=== PATIENT | female | born 1995 | race Caucasian/White ===

== ENCOUNTER 2025-08-20 08:32 | Emergency (ER) | payer BC, SELFPAY ==
--- OUTSIDE RECORDS SUMMARY | 2025-08-20 08:46 | XMS_ITS | Encounter Summary ---
Author Organization [facility] Address [address] [place] [address] Phone Care Team Providers Care Blocking Machine Operator Name Role Phone Megan Driscoll DO Primary Care Provider [phone] Encounter Details Date Type Department Care Team (Late st Contact Info) Description 08/12/2025 Results Follow-Up [facility] - Family Medicine [facility] [address] [place] [address] Megan Driscoll, DO [address] [facility] [place] [address] CMP (COMPREHENSIVE METABOLIC PANEL), VITAMIN D, 25 HYDROXY TOTAL, VITAMIN B12, Additional followed-up results: 5 Social History Tobacco Use Types Packs/Day Years Used Date Smoking Tobacco: Never Smokeless Tobacco: Never Alcohol Use Standard Drinks/Week Comments Never 0 (1 standard drink = 0.6 oz pur e alcohol) PHQ-2 Answer Date Recorded Total Score - Questions 1-9 0 07/07 Social Connection and Isolation Panel Answer Date Recorded In a typical week, how many times do you talk on the phone with family, friends, or neighbors? Three times a week 07/26/20 How often do you get togethe r with friends or relatives? Once a week 07/26/2025 How often do you attend chur or restoration services? Never 07/26/2025 Do you belong to any clubs o r organizations such as spiritism groups, unions, fraternal or athletic groups, or school groups? No 07/26/2025 How often do you attend meet ings of the clubs or organizations you belong to? Never 07/26/2025 Are you , , di vorced, , never , or living with a partner? Living with partner 07/26/2025 AUDIT-C Answer Date Recorded Q1: How often do you have a drink containing alcohol? Never 07/26/2025 Q2: How many drinks containi ng alcohol do you have on a typical day when you are drinking? Patient does not drink Q3: How often do you have si x or more drinks on one occasion? Never 07/26/2025 Overall Financial Resource Strain (CARDIA) Answe r Date Recorded How hard is it for you to pa y for the very basics like food, housing, medical care, and heating? Hard 07/26/2025 [facility] - Occupational Stress Questionnaire Answer Date Recorded Do you feel stress - tense, restless, nervous, or anxious, or unable to sleep at night because your mind is troubled all the time - these days? Very much 07/26/2025 Exercise Vital Sign Answer Date Recorde d On average, how many days pe r week do you engage in moderate to strenuous exercise (like a brisk walk)? Patient declined On average, how many minutes do you engage in exercise at this level? Patient declined 07/26/2025 Hunger Vital Sign Answer Date Recorded Within the past 12 months, y ou worried that your food would run out before you got the money to buy more. Sometimes true Within the past 12 months, t he food you bought just didn't last and you didn't have money to get more. Never true PRAPARE - Transportation Answer Date Re corded In the past 12 months, has l ack of transportation kept you from medical appointments or from getting medications? No 07/07 In the past 12 months, has l ack of transportation kept you from meetings, work, or from getting things needed for daily living? No 07/26/2025 Housing Stability Vital Sign Answer Josr e Recorded In the last 12 months, was t here a time when you were not able to pay the mortgage or rent on time? Yes 07/26/2025 In the past 12 months, how m any times have you moved where you were living? 1 07/26/2025 At any time in the past 12 m [facility], were you homeless or living in a [facility] (including now)? No 07/26/2025 [facility] Utilities Answer Date Recorded In the past 12 months has th e electric, gas, oil, or water company threatened to shut off services in your home? 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 Author Help patients manage type 2 diabetes Care Plan [facility] TYPE 2 DIABETES CONCERN No Megan Driscoll DO Help patient manage blood glucose Care Plan [facility] [place] TYPE 2 DIABETES METFORMIN PATTERN CONCERN No Megan Driscoll DO documented as of this encounter Visit Diagnoses Not on filedocumented in this encounter Additional Health Concerns Active Problems Noted Date Diagnosed Date [facility] TYPE 2 DIABETES CONCERN 02/27/2025 [facility] TYPE 2 DIABETES METFORMIN PATTERN CONCERN 0 02/27/2025 Assessment Noted Time PHQ-9 Depression Total Score: 0 07/27/20 1:06 PM CDT documented as of this encounter Care Teams Blocking Machine Operator Relationship Specialty Start Date End Date Megan Driscoll DO [address] [facility] [address] [address] PCP - General Family Medicine 02/27/25 documented as of this encounter
--- OUTSIDE RECORDS SUMMARY | 2025-08-20 08:46 | XMS_ITS | Clinical Summary ---
Author Organization [facility] Address [address] [place] [address] Phone Care Team Providers Care Freight Elevator Operator Name Role Phone Megan Driscoll DO Primary Care Provider [phone] Allergies Active Allergy Reactions Criticality Noted Date Comments Amoxicillin Hives,Rash,Itching High 02/25/2025 Penicillins Hives,Rash,Itching High 02/25/2025 Medications Desogestrel-Et hinyl Estradiol (APRI PO) Take by mouth. 0.15-.03 mg/mg Active ARIPiprazole (ABILIFY) 5 MG Tablet Take 1 Tablet by mouth daily. 90 Tablet 3 5 Active Tirzepatide (Mounjaro) 2.5 MG/0.5ML Solution Auto-injectorI ndications:Typ e 2 diabetes mellitus without complication, without long-term current use of insulin 2.5 mg by Subcutaneous route once a week. 2 mL 1 5 Active OXcarbazepine (Trileptal) 150 MG Tablet Take 150 mg by mouth 2 times daily. 025 Discontin ued(Error ) ARIPiprazole (Abilify) 15 MG Tablet Take 15 mg by mouth daily. 025 Discontin ued(Error ) venlafaxine (Effexor XR) 75 MG CAPSULE SR 24 HR Take 1 Capsule by mouth 3 times daily. 90 Capsule 3 5 025 Discontin ued(Error ) simvastatin (ZOCOR) 10 MG Tablet Take 1 Tablet by mouth every evening. 30 Tablet 5 5 025 Discontin ued(Error ) semaglutide, 2 MG/DOSE, (OZEMPIC) 8 MG/3ML Solution Pen-injector 2 mg by Subcutaneous route once a week. 3 mL 5 025 Discontin ued(Error ) tirzepatide-we ight management (Zepbound) 2.5 MG/0.5ML Solution Auto-injector 2.5 mg by Subcutaneous route once a week. 1 mL 3 5 025 Discontin ued(Alter diane therapy) Active Problems No known active problems Encounters Date Type Department Care Team Description 08/12/2025 Results Follow-Up [facility] [address] [place] [address] Megan Driscoll DO CMP (COMPREHENSIVE METABOLIC PANEL), VITAMIN D, 25 HYDROXY TOTAL, VITAMIN B12, Additional followed-up results: 5 07/30/2025 Telephone [facility] [address] [place] [address] Megan Driscoll DO Prior Authorization 07/27/2025 1:50 PM CDT Lab [facility] [facility] [address] [place] [address] [facility]/Ancillary Type 2 diabetes mellitus without complication, without long-term current use of insulin; Hyperlipidemia, unspecified hyperlipidemia type; Morbid obesity (HCC); Bipolar 2 disorder (HCC); Other migraine without status migrainosus, not intractable; RLS (restless legs syndrome) Discharge Disposition: Discharged to home or Selfcare 07/27/2025 1:20 PM CDT Office Visit [facility] [address] [place] [address] Megan Driscoll DO Type 2 diabetes mellitus without complication, without long-term current use of insulin (Primary Dx); Hyperlipidemia, unspecified hyperlipidemia type; Morbid obesity (HCC); Bipolar 2 disorder (HCC); Other migraine without status migrainosus, not intractable; RLS (restless legs syndrome) Discharge Disposition: Discharged to home or Selfcare 07/26/2025 Travel from Last 3 Months Immunizations Immunization Administration Dates Next Due [id number] B 02/16/2022 Human Papillomavirus (HPV) 9 -valent Vaccine 08/27/2023 Human Papillomavirus Vaccine (HPV), quadrivalent 07/14/2009,06/25/2009 Influenza Vaccine, Quadrivalent, PF 09/10/2018,1 Influenza Vaccine,unspecifie d Formulation 08/17/2016,09/01/2015 MMR Vaccine 11/09/2022 Meningococcal Vaccine 03/23/2008 TDAP Vaccine 09/04/2015,08/12/2015 Tuberculin Skin Test; Purifi ed Protein Derivative Solutiol 04/23/2018,03/27/2017,2016,06/01,05/18/2015 Varicella Vaccine Live 03/23/2008 Family History Medical History Relation Name Comments Diabetes Father No Known Problems Half-Sister 1 No Known Problems Half-Sister 2 No Known Problems Half-Sister 3 Diabetes Mother Relation Name Status Comments Brother Alive Father Alive Half-Sister 1 Alive Half-Sister 2 Alive Half-Sister 3 Alive Mother Alive Social History Tobacco Use Types Packs/Day Years Used Date Smoking Tobacco: Never Smokeless Tobacco: Never Tobacco Cessation:Counseling Given: Not Answered Alcohol Use Standard Drinks/Week Comments Never 0 [...] 07/26/2025 How often do you attend chur ch or baptism services? Never 07/26/2025 Do you belong to any clubs o r organizations such as scientologist groups, unions, fraternal or athletic groups, or [...] housing, medical care, and heating? Hard 07/26/2025 [facility] - Occupational Stress Questionnaire Answer Date Recorded [...] any time in the past 12 m onths, were you homeless or living in a residential (including now)? No 07/26/2025 [facility] Utilities Answer Date Recorded [...] Not on file Not on f ile Last Filed Vital Signs Vital Sign Reading Time Taken Comments Blood Pressure 102/70 07/27/2025 1:06 PM CDT Pulse 105 07/27/2025 1:06 PM CDT Temperature 36.3 C (97.4 F) 07/27/2025 1:06 PM CDT Respiratory Rate 16 07/27/2025 1:06 PM CDT Oxygen Saturation 98% 07/27/2025 1:06 PM CDT Inhaled Oxygen Concentration - - Weight 147 kg (324 lb) 07/27/2025 1:06 PM CDT Height 165.1 cm (5' 5) 07/27/2025 1:06 PM CDT Body Mass Index 53.92 07/27/2025 1:06 PM CDT Plan of Treatment Health Maintenance Due Date Last Done Comments Pap Smear 06/20/2027 06/20/2024 Cervical Cancer Screening (CCS) 06/18/2029 HPV/Cotest 06/18/2029 06/18/2024 Respiratory Syncytial Virus (RSV) Immunization (Adult) (1 - 1-dose 75+ series) 2069 Meningococcal Immunization (ACWY) Aged Out 03/23/2008 No longer eligible based on patient's age to complete this topic Td Immunization Every 10 Years (Adults With 1 Tdap) Discontinued 09/04/2015, 08/12/2015 TdaP Immunization Discontinued 09/04/2015, 08/12/2015 Influenza Immunization Discontinued 8, 08/31/2017, 08/17/2016, Additional history exists SARS-COV-2 Immunization Discontinued 04/09/2021, 03/11 Hepatitis B Immunization Discontinued 02/16/2022 Hepatitis C Virus (HCV) Screening Completed 08/27/2023 Human Papillomavirus (HPV) Immunization Discontinued 08/27/2023, 07/14/2009, 06/25/2009 Pneumococcal Immunization Combined Discontinued Rotavirus Immunization Aged Out No lo nger eligible based on patient's age to complete this topic Goals Goal Patient Goal Type Associated Problems Recent Progress Patient-Stated? Author Help patients manage type 2 diabetes Care Plan MCCP TYPE 2 DIABETES CONCERN No Megan Driscoll DO Help patient manage blood glucose Care Plan MCCP TYPE 2 DIABETES METFORMIN PATTERN CONCERN No Megan Driscoll DO Procedures Procedure Name Priority Date/Time Associated Diagnosis Comments CBC WITH AUTO DIFFERENTIAL Routine 07/27/2025 1:58 PM CDT Type 2 diabetes mellitus without complication, without long-term current use of insulin Hyperlipidemia, unspecified hyperlipidemia type Morbid obesity (HCC) Bipolar 2 disorder (HCC) Other migraine without status migrainosus, not intractable MAGNESIUM (MG) Routine 07/27/2025 1:58 PM CDT RLS (restless legs syndrome) IRON,TRANSFERN,CALC. TIBC,%SAT Routine 07/27/2025 1:58 PM CDT RLS (restless legs syndrome) HEMOGLOBIN A1C W/ ESTIMATED GLUCOSE Routine 07/27/2025 1:58 PM CDT Type 2 diabetes mellitus without complication, without long-term current use of insulin Hyperlipidemia, unspecified hyperlipidemia type Morbid obesity (HCC) Bipolar 2 disorder (HCC) Other migraine without status migrainosus, not intractable LIPID PANEL Routine 07/27/2025 1:58 PM CDT Type 2 diabetes mellitus without complication, without long-term current use of insulin Hyperlipidemia, unspecified hyperlipidemia type Morbid obesity (HCC) Bipolar 2 disorder (HCC) Other migraine without status migrainosus, not intractable VITAMIN B12 Routine 07/27/2025 1:58 PM CDT Type 2 diabetes mellitus without complication, without long-term current use of insulin Hyperlipidemia, unspecified hyperlipidemia type Morbid obesity (HCC) Bipolar 2 disorder (HCC) Other migraine without status migrainosus, not intractable VITAMIN D, 25 HYDROXY TOTAL Routine 07/27/2025 1:58 PM CDT Type 2 diabetes mellitus without complication, without long-term current use of insulin Hyperlipidemia, unspecified hyperlipidemia type Morbid obesity (HCC) Bipolar 2 disorder (HCC) Other migraine without status migrainosus, not intractable CMP (COMPREHENSIVE METABOLIC PANEL) Routine 07/27/2025 1:58 PM CDT Type 2 diabetes mellitus without complication, without long-term current use of insulin Hyperlipidemia, unspecified hyperlipidemia type Morbid obesity (HCC) Bipolar 2 disorder (HCC) Other migraine without status migrainosus, not intractable COMPLETE BLOOD COUNT (CBC) WITH DIFF Routine 07/27/2025 1:58 PM CDT Type 2 diabetes mellitus without complication, without long-term current use of insulin Hyperlipidemia, unspecified hyperlipidemia type Morbid obesity (HCC) Bipolar 2 disorder (HCC) Other migraine without status migrainosus, not intractable PATHOLOGY CYTOLOGY DIRECTOR OF VENDOR MANAGEMENT 06/20/2024 12:00 AM CDT from Last 3 Months or Most Recently Relevant to Health Maintenance Results * VITAMIN D, 25 HYDROXY TOTAL (07/27/2025 1:58 PM CDT) VITAMIN D, 25 HYDROX 26.0 ng/mL 07/27/2025 4:59 PM CDT [facility] Blood Venipuncture / Unknown 07/27/2025 1:58 PM CDT 07/27/2025 1:58 PM CDT Narrative [facility] - 07/27/2025 4:59 PM CDT Published reference ranges for Vitamin D vary depending on time and place and method of testing, and on patient's age, sex, ethnicity and levels of other measured analytes such as parathormone, calcium and phosphorus. The result should be evaluated in conjunction with clinical findings and suspicions. [place] [employer] and [employer]ocrine Clinical Practice Guidelines: Status Vitamin D levels (ng/mL) Deficient <=20 At risk of inadequacy 21-29 Sufficient 30-100 Centers of Disease Control and Prevention Guidelines: Status Vitamin D levels (ng/mL) Deficient <13 At risk of inadequacy 13-19 Sufficient 20-50 Possibly harmful >50 References: [place] [employer], 2010 Dietary reference intakes for calcium and vitamin D. [place]: The National Academies Press. Clarence M, Jet N, Dolly SANCHEZ, et al., Evaluation, treatment, and prevention of Vitamin D deficiency: an Endocrinology Clinical Practice Guideline. JCEM 2011 96: 7 3289-8853. Prateek Lucia, Marquise Stephenson, Contreras D, et al., Vitamin D Status: [place], 8985-8988, [facility] data brief, no. 59, MD [place]ah[place]: [facility] for Health Statistics. 2011. us Megan L Americo DO CHEMISTRY ORDERABLES Final Re sult Performing Organization Address City/[facility]/ZIP Co de Phone Number [facility] [address] [place] [address] * (ABNORMAL) IRON,TRANSFERN,CALC.TIBC,%SAT (07/27/2025 1:58 PM CDT) Pathologist [facility] IRON 30 25 - 156 mcg/dL 07/27/2025 4:33 PM CDT [facility] TRANSFERRIN 278 180 - 382 mg/dL 07/27/2025 4:33 PM CDT [facility] TIBC, CALCULATED 348 265 - 497 mcg/dL 07/27/2025 4:33 PM CDT [facility] % SATURATION * 9(L) 15 - 62 % 07/27/2025 4:33 PM CDT [facility] Blood Venipuncture / Unknown 07/27/2025 1:58 PM CDT 07/27/2025 1:58 PM CDT us Megan L Americo DO CHEMISTRY ORDERABLES Final Re sult Performing Organization Address City/[facility]/ZIP Co de Phone Number [facility] [address] [place] [address] * (ABNORMAL) HEMOGLOBIN A1C W/ ESTIMATED GLUCOSE (07/27/2025 1:58 PM CDT) HGB-A1C 7.0(H) 4.0 - 6.0 % 07/27/2025 4:26 PM CDT [facility] Est Average Glucose 154.2 mg/dL 07/27/2025 4:26 PM CDT [facility] Blood Venipuncture / Unknown 07/27/2025 1:58 PM CDT 07/27/2025 1:58 PM CDT Narrative [facility] - 07/27/2025 4:26 PM CDT HEMOGLOBIN A1C: DIABETIC PATIENTS: WELL-CONTROLLED: 6.2 - 7.0 INTERMEDIATE WELL-CONTROLLED: 7.0 - 9.0 POORLY-CONTROLLED: >9.0 Specimens containing greater than 5% of Hemoglobin F may result in lower than expected % HbA1C results. us Megan Driscoll DO CHEMISTRY ORDERABLES Final Re sult [facility] [address] [place] [address] * (ABNORMAL) CBC WITH AUTO DIFFERENTIAL (07/27/2025 1:58 PM CDT) WBC 15.04(H) 4.00 - 12.00 10(3)/mcL 07/27/2025 5:41 PM CDT [facility] RBC 4.66 3.80 - 5.30 10(6)/mcL 07/27/2025 5:41 PM CDT [facility] HEMOGLOBIN (HGB) 12.1 12.0 - 15.8 g/dL 07/27/2025 5:41 PM CDT [facility] HEMATOCRIT (HCT) 38.9 36.0 - 47.0 % 07/27/2025 5:41 PM CDT [facility] MCV 83.5 82.0 - 96.0 fL 07/27/2025 5:41 PM CDT [facility] MCH 26.0 26.0 - 34.0 pg 07/27/2025 5:41 PM CDT [facility] MCHC 31.1 31.0 - 36.0 g/dL 07/27/2025 5:41 PM CDT [facility] PLATELET COUNT 401 140 - 440 10(3)/[facility] 07/27/2025 5:41 PM CDT [facility] RDW 13.4 11.8 - 15.5 % 07/27/2025 5:41 PM CDT [facility] MPV 11.9 9.7 - 12.4 fL 07/27/2025 5:41 PM CDT [facility] NEUTROPHILS 54.9 47.0 - 73.0 % 07/27/2025 5:41 PM CDT [facility] LYMPHOCYTES 34.8 18.0 - 42.0 % 07/27/2025 5:41 PM CDT [facility] MONOCYTES 6.6 4.0 - 12.0 % 07/27/2025 5:41 PM CDT [facility] EOSINOPHILS 2.7 0.0 - 5.0 % 07/27/2025 5:41 PM CDT [facility] BASOPHILS 0.5 0.0 - 1.0 % 07/27/2025 5:41 PM CDT [facility] IMMATURE GRANULOCYTE 0.5(H) 0.0 - 0.4 % 07/27/2025 5:41 PM CDT [facility] Comment:Immature Granulocyte s includes Metamyelocytes, Myelocytes, and Promyelocytes. ABSOLUTE NEUTROPHILS 8.24(H) 1.60 - 7.70 10(3)/[facility] 07/27/2025 5:41 PM CDT [facility] ABSOLUTE LYMPHOCYTES 5.24(H) 1.30 - 3.20 10(3)/[facility] 07/27/2025 5:41 PM CDT [facility] ABSOLUTE MONOCYTES 1.00 0.20 - 1.00 10(3)/[facility] 07/27/2025 5:41 PM CDT [facility] ABSOLUTE EOSINOPHIL 0.40 0.00 - 0.40 10(3)/[facility] 07/27/2025 5:41 PM CDT [facility] ABSOLUTE BASOPHILS 0.08 0.00 - 0.10 10(3)/mcL 07/27/2025 5:41 PM CDT [facility] ABSOLUTE IMMATURE GRANULOCYTE 0.08(H) 0.00 - 0.03 10 (3) mcL. 07/27/2025 5:41 PM CDT [facility] NRBC PER 100 WBC 0 07/27/20 5:41 PM CDT [facility] RESULTS ARE CONSISTENT WITH PERIPHERAL SMEAR REVIEW Yes 07/27/2025 5:41 PM CDT [facility] RBC MORPHOLOGY CONSISTENT WITH INDICES Yes 07/27/2025 5:41 PM CDT [facility] LARGE PLATELETS 1+ 5:41 PM CDT [facility] Blood Venipuncture / Unknown 07/27/2025 1:58 PM CDT 07/27/2025 1:58 PM CDT us Megan Driscoll DO HEMATOLOGY ORDERABLES Final R esult [facility] [address] [place] [address] * VITAMIN B12 (07/27/2025 1:58 PM CDT) Pathologist [facility] VITAMIN B12 323 213 - 816 pg/mL 07/27/2025 4:59 PM CDT [facility] Blood Venipuncture / Unknown 07/27/2025 1:58 PM CDT 07/27/2025 1:58 PM CDT us Megan L Americo DO CHEMISTRY ORDERABLES Final Re sult [facility] [address] [place] [address] * MAGNESIUM (MG) (07/27/2025 1:58 PM CDT) MAGNESIUM 1.7 1.6 - 2.6 mg/dL 07/27/2025 4:33 PM CDT [facility] Blood Venipuncture / Unknown 07/27/2025 1:58 PM CDT 07/27/2025 1:58 PM CDT us Megan L Americo DO CHEMISTRY ORDERABLES Final Re sult [facility] [address] [place] [address] * (ABNORMAL) LIPID PANEL (07/27/2025 1:58 PM CDT) CHOLESTEROL 210(H) <200 mg/dL 07/27/2025 4:33 PM CDT [facility] TRIGLYCERIDES 247(H) <150 mg/dL 07/27/2025 4:33 PM CDT [facility] HDL CHOLESTEROL 50 >40 mg/dL 4:33 PM CDT [facility] LDL 111 <130 mg/dL 07/27/2025 4:33 PM CDT [facility] VLDL 49 10 - 50 mg/dL 07/27/2025 4:33 PM CDT [facility] CHOL/HDL RATIO 4.2 0.0 - 4.4 07/27/2025 4:33 PM CDT [facility] NON-HDL CHOLESTEROL 160(H) <130 mg/dL 07/27/2025 4:33 PM CDT [facility] IS THE PATIENT REQUIRED TO BE FASTING? No 07/27/2025 4:33 PM CDT [facility] Blood Venipuncture / Unknown 07/27/2025 1:58 PM CDT 07/27/2025 1:58 PM CDT us Megan L Americo DO CHEMISTRY ORDERABLES Final Re sult [facility] [address] [place] [address] * (ABNORMAL) CMP (COMPREHENSIVE METABOLIC PANEL) (07/27/2025 1:58 PM CDT) SODIUM 142 136 - 145 mmol/L 07/27/2025 4:33 PM CDT [facility] POTASSIUM 3.9 3.5 - 5.1 mmol/L 07/27/2025 4:33 PM CDT [facility] CHLORIDE 105 98 - 107 mmol/L 07/27/2025 4:33 PM CDT [facility] CO2, VENOUS 25 22 - 30 mmol/L 07/27/2025 4:33 PM CDT [facility] ANION GAP 15.9 <18.0 mmol/L 07/27/2025 4:33 PM CDT [facility] GLUCOSE 155(H) 70 - 99 mg/dL 07/27/2025 4:33 PM CDT [facility] BUN 16 5 - 18 mg/dL 07/27/2025 4:33 PM CDT [facility] CREATININE, BLOOD 0.59(L) 0.60 - 1.00 mg/dL 07/27/2025 4:33 PM CDT [facility] BUN/CREATININE RATIO 27(H) 12 - 20 ratio 07/27/2025 4:33 PM CDT [facility] TOTAL PROTEIN 7.6 6.0 - 8.0 g/dL 07/27/2025 4:33 PM CDT [facility] ALBUMIN 4.4 3.5 - 5.0 g/dL 07/27/2025 4:33 PM CDT [facility] A/G RATIO 1.4 1.0 - 2.2 07/27/2025 4:33 PM CDT [facility] CALCIUM 9.5 8.7 - 10.5 mg/dL 07/27/2025 4:33 PM CDT [facility] T BILI 0.2 0.2 - 1.2 mg/dL 07/27/2025 4:33 PM CDT [facility] SGOT (AST) 23 <43 U/L 07/27/2025 4:33 PM CDT [facility] SGPT (ALT) 28 <56 U/L 07/27/2025 4:33 PM CDT [facility] ALKALINE PHOSPHATASE 90 40 - 150 U/L 07/27/2025 4:33 PM CDT [facility] IS THE PATIENT REQUIRED TO BE FASTING? No 07/27/2025 4:33 PM CDT [facility] GFR, ESTIMATED >60 >=60 07/27/2025 4:33 PM CDT [facility] Comment: Creatinine Clearance is the preferred criteria for selecting drug dose adjustments in renally impaired patients. The GFR is provided as additional pertinent clinical information. GFR is reported in mL/min/1.73 sq m. Calculation based on the 2020 Chronic Kidney Disease Epidemiology Collaboration (CKD-EPI) equation refit without adjustment for race. GFR, EST. >60 >=60 025 4:33 PM CDT [facility] Comment: Creatinine Clearance is the preferred criteria for selecting drug dose adjustments in renally impaired patients. The GFR is provided as additional pertinent clinical information. GFR is reported in mL/min/1.73 sq m. Calculation based on the 2009 Chronic Kidney Disease Epidemiology Collaboration (CKD-EPI). GFR, EST. NONAFRICAN >60 >=60 07/27/2025 4:33 PM CDT [facility] Comment: Creatinine Clearance is the preferred criteria for selecting drug dose adjustments in renally impaired patients. The GFR is provided as additional pertinent clinical information. GFR is reported in mL/min/1.73 sq m. Calculation based on the 2009 Chronic Kidney Disease Epidemiology Collaboration (CKD-EPI). Blood Venipuncture / Unknown 07/27/2025 1:58 PM CDT 07/27/2025 1:58 PM CDT us Megan Driscoll DO CHEMISTRY ORDERABLES Final Re sult [facility] [address] [place] [address] * PATHOLOGY CYTOLOGY DIRECTOR OF VENDOR MANAGEMENT (06/20/2024 12:00 AM CDT) 06/20/2024 us Provider Scan PATHOLOGY/CYTOLOGY ORDERABLES Fi nal Result SCAN from Last 3 Months or Most Recently Relevant to Health Maintenance Additional Health Concerns Active Problems Noted Date Diagnosed Date MCCP TYPE 2 DIABETES CONCERN 02/27/2025 MCCP TYPE 2 DIABETES METFORMIN PATTERN CONCERN 0 02/27/2025 Insurance [facility] Care Teams Freight Elevator Operator Relationship Specialty Start Date End Date Megan Driscoll DO [address] [place] [address] PCP - General Family Medicine 02/27/25
[2025-08-20 09:04] VITALS: BP 122/61; PULSE 84; RESP 18; TEMP 36.8; O2SAT 100
--- NOTE | 2025-08-20 09:16 | ED.GENADULT ---
HPI - General Adult General Chief complaint: Unspecified Stated complaint: Time Seen by Provider: 08/20/25 09:16 Source: patient Mode of arrival: ambulatory Limitations: no limitations History of Present Illness HPI narrative: 30-year-old female presents with confirmation of urine test at home. She reports started her last menstrual period was July 15. She denies any spotting, abdominal pain. She is a type 2 diabetic and takes mind RO, she also takes Abilify for bipolar. MD complaint: Concern for Related Data Home Medications ?Medication ?Instructions ?Recorded ?Confirmed ?Last Taken ?Type aripiprazole 5 mg tablet mg 08/20/25 Unknown History desogestrel 0.15 mg-ethinyl tablet 08/20/25 Unknown History estradiol 0.03 mg tablet (Apri) tirzepatide 2.5 mg/0.5 mL mg subcut 08/20/25 Unknown History subcutaneous pen injector (Mounjaro) Allergies Allergy/AdvReac Type Severity Reaction Status Date / Time amoxicillin Allergy Hives Verified 08/20/25 09:13 Penicillins Allergy Rash Verified 08/20/25 09:13 Review of Systems Review of Systems: CONSTITUTIONAL: Denies malaise, chills, sweats, or fever. CARDIOVASCULAR: Denies chest pain, palpitations RESPIRATORY: Denies cough or dyspnea. GASTROINTESTINAL: Denies abdominal pain, nausea, vomiting GENITOURINARY: Reports missed. MUSCULOSKELETAL: Reports aching legs All systems reviewed & are unremarkable except as noted in HPI and below PMFSH Comments At time of signature, agree with nursing past medical, surgical, social and family history. There is no relevant family history pertinent to the presenting complaint Exam Narrative: GENERAL: Well-appearing, well-nourished, and in no acute distress. HEAD: Normocephalic EYES: PERRLA, sclera clear ENT: Nares clear. Mucous membranes moist. NECK: Supple. CHEST: No respiratory distress. Speaks in full sentences. HEART: Regular rate and rhythm. SKIN: Warm, dry, no visible rash. NEURO: Alert and oriented x3. PSYCH: Normal mood and affect Course Course Emergency Course: Patient is aware of diagnosis, understands and agrees to treatment plan. Anticipatory guidance given. Patient agrees to follow-up as directed and is aware of reasons to seek care at the emergency department. Portions of this record may have been created with voice recognition software Level of Care: Express Care Visit Vital Signs Vital signs: Vital Signs Temperature 98.3 F 08/20/25 09:04 Pulse Rate 84 08/20/25 09:04 Respiratory Rate 18 08/20/25 09:04 Blood Pressure 122/61 08/20/25 09:04 Pulse Oximetry 100 08/20/25 09:04 Oxygen Delivery Room Air 08/20/25 09:04 Temperature 98.3 F 08/20/25 09:04 Pulse Rate 84 08/20/25 09:04 Respiratory Rate 18 08/20/25 09:04 Blood Pressure 122/61 08/20/25 09:04 Pulse Oximetry 100 08/20/25 09:04 Oxygen Delivery Room Air 08/20/25 09:04 Reviewed. Medical Decision Making MDM Narrative Medical decision making narrative: The patient was evaluated by myself in the [facility] care. History is obtained from patient who is an independent historian and physical exam was performed.? Available medical records were reviewed at this time. ? Exam findings show no acute concerns or changes; patient is non-toxic appearing and is in no distress. Patient is appropriate for outpatient treatment and follow-up. ? I have evaluated and discussed social determinants of health with the patient that could potentially impact subsequent diagnosis and treatment plans. ? Differential diagnosis and treatment plan were discussed with the patient. Patient agrees with discussion and after shared medical decision making agrees with plan of care. All questions were answered to the patient's satisfaction. Vital Signs Vital Signs: Vital Signs Temperature 98.3 F 08/20/25 09:04 Pulse Rate 84 08/20/25 09:04 Respiratory Rate 18 08/20/25 09:04 Blood Pressure 122/61 08/20/25 09:04 Pulse Oximetry 100 08/20/25 09:04 Oxygen Delivery Room Air 08/20/25 09:04 Temperature 98.3 F 08/20/25 09:04 Pulse Rate 84 08/20/25 09:04 Respiratory Rate 18 08/20/25 09:04 Blood Pressure 122/61 08/20/25 09:04 Pulse Oximetry 100 08/20/25 09:04 Oxygen Delivery Room Air 08/20/25 09:04 Critical Care Time Critical Care Time Critical Care Time: No Discharge Plan Discharge Clinical Impression: Positive urine test Patient Disposition: Home Condition: Stable Instructions: (ED) Additional Instructions: Based on this start of your last period, you are approximately 6 weeks . Please follow-up with an ethanol quality leader. Please start taking a vitamin. Please contact her doctor today regarding this your medications that you are currently taking. If you have any urgent concerns please go to the emergency room Patient Language: Macedonian Prescriptions: New Vitamin 27 mg iron- 800 mcg tablet 1 tablet PO DAILY Qty: 30 0RF No Action desogestrel-ethinyl estradiol [Apri] 0.15-0.03 mg tablet aripiprazole 5 mg tablet Mounjaro 2.5 mg/0.5 mL pen injector SUBCUT Follow-up/Referrals: You Carvalho MD [Physician, [employer]] Americo,Megan Combs DO [Primary Care Provider, Unknown] Time of Disposition: 09:38
[2025-08-20 09:30] LABS: BEDSIDEPREGUCG Positive (Negative); EDUAAPPEAR Clear; EDUABILI Negative (Negative); EDUABLOOD Negative (Negative); EDUACOLOR1 Yellow; EDUAGLUCOSE Negative (Negative); EDUAKETONE Negative (Negative); EDUALEUKO Negative (Negative); EDUANITRATE Negative (Negative); EDUAPH 6.0; EDUAPROTEIN Negative (Negative); EDUASPGRAVITY 1.030; EDUAUROBILI 0.2
== END 2025-08-20 09:48 | disposition home or self-care (01) ==
PROVIDERS: Emergency Provider Nurse Practitioner; PCP Student in an Organized Health Care Education/Training Program
DX: Z32.01 Encounter for pregnancy test, result positive (principal); Z79.899 Other long term (current) drug therapy
CPT/HCPCS: 81003; 81025; 99203; G0463